=== PATIENT | female | born 1980 | race Caucasian/White ===

== ENCOUNTER 2017-03-30 21:44 | Emergency (ER) | payer BC ==
[~2017-03-30] VITALS: Ht 160 cm; Wt 52.8 kg
[~2017-03-30 21:44] MED LIST: ESOM20CA PO; METO-394 PO; ONDA4TAB7 PO; OXYC-302 PO
[2017-03-30] MEDS ORDERED: ACETAMINOPHEN 500 MG TABLET ONE (22:52)
[2017-03-30] MEDS ORDERED: AMLO10TA4 PO (22:58)
[2017-03-30] MEDS ORDERED: DRON5CAP PO (22:58)
[2017-03-30] MEDS ORDERED: ACETAMINOPHEN 325 MG TABLET PO ONE (23:00)
[2017-03-30 23:17] LABS: ASPARTATE AMINO TRANSFERASE 28 U/L (15-37); BLOOD UREA NITROGEN 10 mg/dL (7-18)
[2017-03-31] MEDS ORDERED: CEFTRIAXONE 1,000 MG IM ONE (00:30)
[2017-03-31 01:02] VITALS: BP 122/90
== END 2017-03-31 01:05 | disposition home or self-care (01) ==
LOC: ED 22:39
DX: N30.01 Acute cystitis with hematuria (principal); R50.81 Fever presenting with conditions classified elsewhere; E87.1 Hypo-osmolality and hyponatremia
CPT/HCPCS: 36415; 71010; 80053; 81001; 83605; 84145; 85025; 87040; 87086

== ENCOUNTER 2017-09-15 11:42 | Inpatient (IN) | payer BC ==
[~2017-09-15] VITALS: Ht 160 cm; Wt 45.0 kg
[~2017-09-15 11:42] MED LIST changes: -LIDOCAINE 2%, 20ML ONE
[2017-09-15] MEDS ORDERED: SODIUM CHLORIDE FLUSH 10ML SYR IVF ONE (12:00)
[2017-09-15] MEDS ORDERED: SODIUM CHLORIDE 0.9% 1,000ML IVBOLUS ONE (12:30)
[2017-09-15] MEDS ORDERED: SODIUM CHLORIDE FLUSH 10ML SYR IVF PRN (12:30)
[2017-09-15 13:00] LABS: HEMATOCRIT 41.7 % (34.6-47.8); HEMOGLOBIN 13.2 g/dL (11.7-16.4)
[2017-09-15 13:05] VITALS: BP 93/53
[2017-09-15 13:05] LABS: ASPARTATE AMINO TRANSFERASE 34 U/L (15-37); BLOOD UREA NITROGEN 45 mg/dL (7-18)
[2017-09-15] MEDS ORDERED: morphine SULFATE 125 MG in SODIUM CHLORIDE 0.9% 237.5 ML IV PRN (13:09)
[2017-09-15] MEDS ORDERED: LORazepam INTENSOL 2 MG/ML SL PRN (13:30)
[2017-09-15] MEDS ORDERED: ATROPINE OPHTH SOLN 1%, 5ML BC PRN (13:30)
[2017-09-15 13:42] LABS: DIFF TOTAL CELLS COUNTED 100 CELL DIFF
[2017-09-15 13:45] LABS: ANISOCYTOSIS 1+; VERIFY COUNTS? YES
[2017-09-15 13:46] LABS: POLYCHROMASIA 1+
[2017-09-15] MEDS ORDERED: ATROPINE OPHTH SOLN 1%, 2ML BC PRN (17:00)
[2017-09-15] MEDS ORDERED: SODIUM CHLORIDE FLUSH 10ML SYR IVF SCH (21:00)
== END 2017-09-15 21:38 | disposition expired | DRG 374 ==
LOC: ED 12:25 → EDIP 12:26 → ED 12:44 → 3NW 14:12
PROVIDERS: ADMIT Hospitalist; ATTEND Hospitalist
DX: C16.9 Malignant neoplasm of stomach, unspecified (principal); E43 Unspecified severe protein-calorie malnutrition; J96.01 Acute respiratory failure with hypoxia; I95.9 Hypotension, unspecified; E87.1 Hypo-osmolality and hyponatremia; K31.84 Gastroparesis; J98.11 Atelectasis; Z68.1 Body mass index [BMI] 19.9 or less, adult; K21.9 Gastro-esophageal reflux disease without esophagitis; R62.7 Adult failure to thrive; Z51.5 Encounter for palliative care; Z66 Do not resuscitate; Z85.028 Personal history of other malignant neoplasm of stomach; Z92.21 Personal history of antineoplastic chemotherapy; Z98.84 Bariatric surgery status; Z87.440 Personal history of urinary (tract) infections; Z87.01 Personal history of pneumonia (recurrent)
CPT/HCPCS: 36415; 71010; 80053; 83880; 85025; 86850; 86900; 93005; 96360; J2270; J7030; J7050

== ENCOUNTER → 2017-09-15 | Outpatient (CLI) | payer BC ==
[~2017-09-15] MED LIST changes: +ALPR0.254 PO; +AMLO10TA4 PO; +DRON5CAP PO; +DRON5CAP15 PO; +FURO10SO PO; +HYDR4TAB48 PO; +LEVO750T26 PO; +LIDOCAINE 2%, 20ML ONE; +MISO100T PO; +NYST1000 PO; +ONDA4TAB10 PO; +PANT40GR PO; +SUCR1ORA5 PO; +ZINC220C5 PO
== END | disposition home or self-care (01) ==
LOC: RAD 10:49
PROVIDERS: ATTEND Internal Medicine
DX: C16.3 Malignant neoplasm of pyloric antrum (principal)
CPT/HCPCS: 32555; J3490